=== PATIENT | male | born 1975 | race Caucasian/White ===

== ENCOUNTER 2018-11-13 18:48 | Emergency (ER) | payer OTHER ==
[~2018-11-13] VITALS: Ht 175.3 cm; Wt 93.0 kg
[2018-11-13] MEDS ORDERED: ADDERALL 10 MG10 MG PO (19:03)
[2018-11-13 19:38] LABS: INFLUENZA B ANTIGEN None Detected (None Detect)
[2018-11-13] MEDS ORDERED: PROAIR HFA8.5 GM INH (19:54)
[2018-11-13] MEDS ORDERED: PREDNISONE 20 M20 M1 PO (19:54)
[2018-11-13 20:17] VITALS: BP 132/90
== END 2018-11-13 20:18 | disposition home or self-care (01) ==
LOC: M.ERS 18:48
PROVIDERS: Nurse Practitioner Family
DX: J10.1 Influenza due to other identified influenza virus with other respiratory manifestations (principal); J40 Bronchitis, not specified as acute or chronic

== ENCOUNTER 2019-04-07 00:25 | Emergency (ER) | payer OTHER ==
[~2019-04-07] VITALS: Ht 175.3 cm; Wt 90.7 kg
[~2019-04-07 00:25] MED LIST: ADDERALL 10 MG10 MG PO; PREDNISONE 20 M20 M1 PO; PROAIR HFA8.5 GM INH
[2019-04-07] MEDS ORDERED: ESZOPICLONE1 MG PO (00:47)
[2019-04-07] MEDS ORDERED: LOPRESSOR25 PO (00:47)
[2019-04-07] MEDS ORDERED: KEFLEX500 M1 PO (00:47)
[2019-04-07] MEDS ORDERED: LISINOPRIL10 MG PO (00:47)
[2019-04-07] MEDS ORDERED: SERTRALINE HCL50 MG PO (00:48)
[2019-04-07] MEDS ORDERED: NEXIUM40 MG PO (00:48)
[2019-04-07 01:49] LABS: ABSOLUTE BASOPHILS 0.1 thou/uL (0.0-0.2); ABSOLUTE EOSINOPHILS 0.1 thou/uL (0.0-0.7); ABSOLUTE LYMPHOCYTES 1.9 thou/uL (0.8-5.3); ABSOLUTE MONOCYTES 1.1 thou/uL (0.0-1.2); ABSOLUTE NEUTROPHILS 9.1 thou/uL (1.6-8.1); BASOPHILS 0.5 %; EOSINOPHILS 0.7 %; HEMATOCRIT 41.1 % (42.0-52.0); HEMOGLOBIN 14.7 gm/dL (14.0-18.0); LYMPHOCYTES 15.6 %; MCH 33.7 pg (26.0-34.0); MCHC 35.8 g/dL (28.0-37.0); MCV 94.2 fL (80.0-100.0); MPV 7.7 fl. (7.2-11.1); NUCLEATED RBCS 0 /100WBC; PLATELET COUNT* 303 thou/uL (150-400); POLYS 74.2 %; RBC 4.36 mil/uL (4.50-6.00); RDW-CV 12.6 % (10.5-14.5); WBC 12.3 thou/uL (4.0-11.0)
[2019-04-07 01:52] LABS: CALCIUM 9.4 mg/dL (8.5-10.1); CREATININE 0.9 mg/dL (0.6-1.3); POTASSIUM 3.9 mmol/L (3.5-5.1)
[2019-04-07 01:57] LABS: ALBUMIN 3.6 g/dL (3.4-5.0); TOTAL BILIRUBIN 0.8 mg/dL (<0.1-1.0); TOTAL PROTEIN 8.3 g/dL (6.4-8.2)
[2019-04-07 03:34] LABS: ESR (SEDRATE) 66 mm/hr (0-15)
[2019-04-07 05:06] VITALS: BP 119/67
== END 2019-04-07 05:08 | disposition short-term general hospital (02) ==
LOC: M.ERS 00:25
PROVIDERS: Emergency Medicine
DX: L02.212 Cutaneous abscess of back [any part, except buttock and flank] (principal); G89.29 Other chronic pain

== ENCOUNTER 2019-07-12 05:58 | Emergency (ER) | payer OTHER ==
[~2019-07-12] VITALS: Ht 175.3 cm; Wt 90.7 kg
[~2019-07-12 05:58] MED LIST changes: +ESZOPICLONE1 MG PO; +KEFLEX500 M1 PO; +LISINOPRIL10 MG PO; +LOPRESSOR25 PO; +NEXIUM40 MG PO; +SERTRALINE HCL50 MG PO
[2019-07-12] MEDS ORDERED: AUGMENTIN 875-1 EACH PO (06:08)
[2019-07-12] MEDS ORDERED: IBUPROFEN 800800 M1 PO (07:43)
[2019-07-12] MEDS ORDERED: NORCO 5-325 TA1 EAC1 PO (07:43)
[2019-07-12 08:04] VITALS: BP 135/85
--- NOTE | 2019-07-13 09:28 | EKG ---
[place] [address] ELECTROCARDIOGRAM REPORT Name: AMIEPOLA KEYS Room: [facility]#: [id number] Admission: 07/12/19 Attend Phys: Discharge: 07/12/19 Date of : 75 Report #: [id number] THIS REPORT FOR: //name// [facility] ED Test Date: 2019-07-12 Test Time: 06:10:49 Pat Name: POLA HOLLOWAY Department: Room: Gender: M [employer] Designer: ALICE : 1975 Requested By: Zeus Hughes Order Number: [id number] Allison MD: Dominick Valentine Measurements Intervals [place] Rate: 97 P: 59 CO: 152 QRS: 102 QRSD: 93 T: 40 QT: 343 QTc: 436 Interpretive Statements Sinus rhythm Baseline wander in lead(s) I,II,aVR,V1 No previous ECG available for comparison Electronically Signed On 07-13-2019 9:28:31 RESIDENTIAL TREATMENT COUNSELOR by Dominick Valentine [email or web address] <ELECTRONICALLY SIGNED> By: Dominick Valentine MD, [facility] 07/13/19 0928 0610 0610 Dominick Valentine MD, FAC /EPI
== END 2019-07-12 08:06 | disposition home or self-care (01) ==
LOC: M.ERS 05:58
DX: S22.32XA Fracture of one rib, left side, initial encounter for closed fracture (principal); G89.29 Other chronic pain; X58.XXXA Exposure to other specified factors, initial encounter; Y93.89 Activity, other specified; Y92.89 Other specified places as the place of occurrence of the external cause; Y99.8 Other external cause status

== ENCOUNTER 2020-11-22 21:14 | Observation (INO) | payer OTHER ==
[~2020-11-22] VITALS: Ht 175.3 cm; Wt 97.5 kg
[~2020-11-22 21:14] MED LIST changes: +AUGMENTIN 875-1 EACH PO; +IBUPROFEN 800800 M1 PO; +NORCO 5-325 TA1 EAC1 PO
[2020-11-22 21:39] VITALS: BP 117/84
[2020-11-22 21:47] LABS: ABSOLUTE BASOPHILS 0.1 thou/uL (0.0-0.2); ABSOLUTE EOSINOPHILS 0.3 thou/uL (0.0-0.7); ABSOLUTE LYMPHOCYTES 3.2 thou/uL (0.8-5.3); ABSOLUTE MONOCYTES 0.6 thou/uL (0.0-1.2); ABSOLUTE NEUTROPHILS 4.6 thou/uL (1.6-8.1); BASOPHILS 1.1 %; EOSINOPHILS 3.3 %; HEMATOCRIT 47.6 % (42.0-52.0); LYMPHOCYTES 36.7 %; MCH 33.9 pg (26.0-34.0); MCHC 35.7 g/dL (28.0-37.0); MCV 95.1 fL (80.0-100.0); MONOCYTES 6.9 %; MPV 7.5 fl. (7.2-11.1); NUCLEATED RBCS 0 /100WBC; PLATELET COUNT* 275 thou/uL (150-400); RBC 5.01 mil/uL (4.50-6.00); RDW-CV 12.3 % (10.5-14.5); WBC 8.8 thou/uL (4.0-11.0)
[2020-11-22 21:48] LABS: URINE BILIRUBIN NEGATIVE (Negative); URINE BLOOD TRACE (Negative); URINE CLARITY CLEAR; URINE COLOR YELLOW; URINE GLUCOSE-RANDOM NEGATIVE (Negative); URINE KETONES NEGATIVE (Negative); URINE LEUKOCYTES-REFLEX NEGATIVE (Negative); URINE NITRITE-REFLEX NEGATIVE (Negative); URINE PROTEIN NEGATIVE (Negative); URINE SPECIFIC GRAVITY 1.025 (1.005-1.030); URINE UROBILINOGEN 0.2 E.U./dl (0.2-1.0)
[2020-11-22 21:59] LABS: AMP/METHAMP Negative (Negative); BARBITURATES Negative (Negative); BENZODIAZEPINES Negative (Negative); COCAINE Negative (Negative); METHADONE Negative (Negative); OPIATES Negative (Negative); PCP Negative (Negative); THC Negative (Negative)
[2020-11-22 22:00] LABS: CALCIUM 8.8 mg/dL (8.5-10.1); POTASSIUM 3.5 mmol/L (3.5-5.1)
[2020-11-22 22:04] LABS: MAGNESIUM 2.1 mg/dL (1.8-2.4); TOTAL BILIRUBIN 0.4 mg/dL (<0.1-1.0); TOTAL PROTEIN 8.4 g/dL (6.4-8.2)
[2020-11-23 01:49] VITALS: BP 140/76
[2020-11-23 08:05] VITALS: BP 113/74
--- NOTE | 2020-11-23 10:50 | EKG ---
[place] [address] ELECTROCARDIOGRAM REPORT Name: POLA HOLLOWAY Room: [address]R.#: [id number] Admission: 11/23/20 Attend Phys: Shiraz Doe Discharge: Date of : 75 Date of Service: 11/22/202147 Report #: [id number] THIS REPORT FOR: //name// [facility] ED Test Date: 2020-11-22 Test Time: 21:48:45 Pat Name: POLA HOLLOWAY Department: Room: [address] Gender: M [employer]: [facility] : 1975 Requested By: Jeninfer Pace Order Number: [id number] Allison MD: Rigo Medina Measurements Intervals [place] Rate: 77 P: 57 MS: 163 QRS: 101 QRSD: 90 T: 50 QT: 371 QTc: 420 Interpretive Statements Sinus rhythm Right axis deviation Compared to ECG 07/12/2019 06:10:49 no change Electronically Signed On 11-23-2020 10:50:30 CDT by Rigo Medina [email or web address] <ELECTRONICALLY SIGNED> By: Rigo Medina MD, [facility] 11/23/20 1050 2148 2148 Rigo Medina MD, [facility] /EPI
[2020-11-23 15:56] VITALS: BP 115/75
[2020-11-23 20:30] VITALS: BP 95/45
[2020-11-23] MEDS ORDERED: FLEXERIL PO (21:59)
[2020-11-23] MEDS ORDERED: HYDROCODON-ACE1 EAC7 PO ×2 (21:59→22:01)
[2020-11-23 22:41] VITALS: BP 95/45
== END 2020-11-23 23:00 | disposition home or self-care (01) ==
LOC: M.ERS 21:14 → M.ORTHSURG 11-23 01:19 → M.TBA-ER 11-23 01:19 → M.ORTHSURG 11-23 02:02
PROVIDERS: Emergency Medicine; ADMIT Internal Medicine; ATTEND Internal Medicine
DX: M54.9 Dorsalgia, unspecified (principal); G89.29 Other chronic pain; Z20.822 Contact with and (suspected) exposure to COVID-19; E66.9 Obesity, unspecified; Z96.82 Presence of neurostimulator